=== PATIENT | female | born 1965 | race Caucasian/White ===

== ENCOUNTER 2017-01-21 07:36 | Inpatient (IN) | payer OTHER, MEDICAID ==
[~2017-01-21] VITALS: Ht 149.9 cm; Wt 47.3 kg
[~2017-01-21 07:36] MED LIST: APAP/HYDROCODON1 T13 PO; CIPRO500 MG PO; COL100 PO; DEPAKOTE500 MG PO; ECO81 PO; KLOR-CON M2020 MEQ PO; LAC PO; LASIX40 MG PO; MSC15 PO; ROB750 PO; TEGRETOL200 MG PO; ZOCOR40 MG PO
--- NOTE | 2017-01-21 07:53 | NUR ---
PT BIB CAREGIVER C/O WEAKNESS ON THE RIGHT LEG. PER CAREGIVER PT DIDNT FALL. PT WHEELED TO BED 9. PER JACQUELIN, PT CAN WALK WITH ASSISTANCE, BUT THIS AM, PT CRYING AND COMPLAINING. JACQUELIN HAS BEEN TAKING CARE OF SHRAVAN FOR 3-[address] ARAUZ.
--- NOTE | 2017-01-21 07:54 | NUR ---
DR VILLEGAS AT BEDSIDE
--- NOTE | 2017-01-21 08:00 | NUR ---
REDNESS NOTED ON THE RT LOWER LEG AREA
--- NOTE | 2017-01-21 08:05 | NUR ---
PXRAY AT BEDSIDE
--- NOTE | 2017-01-21 08:08 | NUR ---
MEDICATED PT ORDERED, SEE MAR. WILL MONITOR FOR ADVERSE REACTIONS
--- NOTE | 2017-01-21 08:15 | NUR ---
PT TAKEN TO XRAY VIA [facility].
[2017-01-21 08:22] LABS: CALCIUM 9.9 mg/dL (8.5-10.1); CARBON DIOXIDE 30.8 mmol/L (21-32); CHLORIDE SERUM 99 mmol/L (98-107); CREATININE SERUM 0.7 mg/dL (0.6-1.0); GFR1 > 60 mL/min; GLUCOSE SERUM 92 mg/dL (74-106); POTASSIUM SERUM 4.3 mmol/L (3.5-5.1); SODIUM SERUM 137 mmol/L (136-145)
[2017-01-21 08:29] LABS: BASOPHIL % 0.3 % (0-2); PLATELET COUNT 179 x10^3mcL (130-400); RED CELL DISTRIBUTION WIDTH 13.5 % (11.5-14.5)
--- NOTE | 2017-01-21 08:47 | NUR ---
PT STILL IN XRAY
--- NOTE | 2017-01-21 08:50 | NUR ---
PT BACK IN ROOM FROM [facility] VIA [facility]
--- NOTE | 2017-01-21 09:11 | NUR ---
PT LYING COMFORTABLY ON GURERIC, VSS. WILL CONTINUE TO MONITOR PT
[2017-01-21] MEDS ORDERED: CALCIUM PO (10:09)
[2017-01-21] MEDS ORDERED: SYNTHROID0.112 MG PO (10:10)
--- NOTE | 2017-01-21 10:10 | NUR ---
MULTIPLE IV ATTEMPTS STARTED HOWEVER WAS UNSUCCESSFUL. DR PISANOIED
--- NOTE | 2017-01-21 10:14 | NUR ---
REPORT GIVEN TO JUAN.
--- NOTE | 2017-01-21 10:59 | NUR ---
RECEIVED PT IN BED ALERT AND ORIENTED TO PERSON AND PLACE ONLY. HX CEREBRAL PALSY AND SZ. SZ PRECAUTIONS ON. ABLE TO ANSWER SOME SIMPLE QUESTIONS AND FOLLOW SOME SIMPLE COMMANDS. TELE #22, SB 59. CHIEF COMPLAINT OF R LEG PAIN. DENIES ANY PAIN AT THIS TIME. DENIES GI UPSET. VOIDS FREELY BUT PER PTS SISTER, PT IS INCONTINENT AT TIMES. GENERALIZED WEAKNESS. AMBULATES AT HOME WITH ASSISTANCE OR USES [facility]. 2+ EDEMA NOTED TO RLE. 1+ EDEMA TO LLE. SKIN INTACT. SISTER AT BEDSIDE. INSTRUCTED TO USE CALL LIGHT WHEN IN NEED OF ANY ASSISTANCE.
[2017-01-21 11:01] LABS: FREE T4 1.28 ng/dL (0.76-1.46); T4(THYROXINE) 10.9 ug/dL (4.7-13.3)
[2017-01-21 11:17] LABS: MAGNESIUM 1.9 mg/dL (1.8-2.4); PHOSPHOROUS 3.6 mg/dL (2.5-4.9)
[2017-01-21 11:18] LABS: CHOLESTEROL/HDL RATIO 2.8
[2017-01-21 11:21] LABS: T3 TOTAL 0.91 ng/mL
[2017-01-21 11:54] VITALS: BP 138/75
[2017-01-21 13:04] LABS: UA SPECIFIC GRAVITY 1.015 (1.005-1.035); microscopic required? YES; urine erythrocyte NEGATIVE (NEGATIVE)
--- NOTE | 2017-01-21 15:18 | NUR ---
PT COMPLAINING OF PAIN TO R LEG. NORCO PO GIVEN.
[2017-01-21 16:17] VITALS: BP 113/81
--- NOTE | 2017-01-21 18:19 | NUR ---
PT SITTING UP IN BED EATING DINNER. SISTER AT BEDSIDE. PT DENIES PAIN AT THIS TIME. CALL LIGHT WITHIN REACH.
--- NOTE | 2017-01-21 19:30 | NUR ---
PT. IS ALERT X3. FORETFUL ON DATE. LUNGS CLEAR BILATERAL. ON TELE #22. SINUS SINTIA. HR 55. NO SIGNS OF RESP. DISTRESS. LLE EDEMA +1, RLE EDEMA +2. PEDIAL PULSES PRESENT. BOWEL SOUNDS PRESENT X4. USES BED MORENO WITH ASSISTANCE. LAST BM 06/23/16. RLE RED/DRY, FLACKY SKIN. IV CLEAN AND INTACT. RAC NS INFUSING PER ORDER. NO COMPLAINS OF PAIN. FAMILY AT BEDSIDE. ALL ADLS MET. CALL [facility] WITHIN REACH. BED IN LOWEST PPOSTION. WILL CONTINUE TO [facility].
[2017-01-21 21:29] VITALS: BP 119/98
[2017-01-21 21:41] VITALS: BP 90/55
--- NOTE | 2017-01-22 01:40 | NUR ---
PT. IS RESTING IN BED. NO SIGNS OF RESP. DISTRESS. NO COMPLAINS OF PAIN. CALL LIGHT WITHIN REACH. WILL CONTINUE TO MONITOR.
[2017-01-22 04:13] VITALS: BP 108/56
--- NOTE | 2017-01-22 04:39 | NUR ---
PT. IS RESTING IN BED. NO SIGNS OF DISTRESS. BED IN LOWEST POSITION. CALL LIGHT IN REACH. WILL ENDORSE TO AM RN DURING SHIFT CHANGE.
[2017-01-22 06:20] LABS: CALCIUM 8.6 mg/dL (8.5-10.1); CARBON DIOXIDE 30.4 mmol/L (21-32); CHLORIDE SERUM 103 mmol/L (98-107); CREATININE SERUM 0.6 mg/dL (0.6-1.0); GFR1 > 60 mL/min; GLUCOSE SERUM 82 mg/dL (74-106); MAGNESIUM 1.7 mg/dL (1.8-2.4); PHOSPHOROUS 2.9 mg/dL (2.5-4.9); SODIUM SERUM 139 mmol/L (136-145)
[2017-01-22 06:28] LABS: BASOPHIL % 0.5 % (0-2); PLATELET COUNT 133 x10^3mcL (130-400); RED CELL DISTRIBUTION WIDTH 13.3 % (11.5-14.5)
--- NOTE | 2017-01-22 08:00 | NUR ---
RECEIVED PT IN BED ALERT AND ORIENTED TO PERSON AND PLACE. TELE #22, NSR 60. DENIES ANY PAIN OR DISCOMFORT AT THIS TIME. BREATHING EVEN AND UNLABORED ON RA. DENIES ANY GI UPSET. VOIDS FREELY BUT INCONTINENT AT TIMES. GENERALIZED WEAKNESS. SKIN CDI. 2+ EDEMA NOTED TO RLE. 1+ EDEMA NOTED TO LLE. RED/DRY PATCH OF SKIN NOTED TO RLE. SISTER AT BEDSIDE. INSTRUCTED TO USE CALL LIGHT WHEN IN NEED OF ASSISTANCE.
--- NOTE | 2017-01-22 08:30 | NUR ---
BEDSIDE ROUNDS DONE WITH DR OCHOA, PLAN TO WAIT FOR PT TO BE SEEN BY DR SOLIS BEFORE DISCHARGE TODAY. PT AND FAMILY AGREEABLE.
[2017-01-22 09:06] VITALS: BP 113/69
[2017-01-22 14:16] VITALS: BP 126/74
[2017-01-22 16:27] VITALS: BP 105/54
--- NOTE | 2017-01-22 18:19 | NUR ---
PT SITTING UP IN BED, SISTER AT [facility]. DENIES ANY PAIN OR DISCOMFORT. SEEN BY DR SOLIS. ASSISTED PT TO GET UP TO [facility] TODAY BUT PT REQUIRED 2 PERSON MAX ASSIST.
--- NOTE | 2017-01-22 20:00 | NUR ---
RECEIVED PT IN BED, WITH FAMILY MEMBERS AT THE BEDSIDE, VISITING. A/O X2, ABLE TO FOLLOW SOME COMMANDS. RESP. EVEN AND UNLABORED. ON ROOM AIR, NO DISTRESS NOTED. SR/SB ON THE MONITOR,. DENIES CHEST PAIN OR ANY DISCOMFORT AT THIS TIME. IVF, NS AT 100ML/HR, INTACT AND INFUSING VIA SITA, SITE CLEAR. ABLE TO MOVE ALL EXTS. WITH GEN. WEAKNESS, NEEDS ASSIST. WITH AMBULATION. VOIDING FREELY, INCONT. AT TIMES. ASSISTED WITH HS C[facility].CALL LIGHT WITHIN REACH. WILL CONTINUE TO MONITOR.
[2017-01-22 20:53] VITALS: BP 98/57
--- NOTE | 2017-01-22 23:25 | NUR ---
COMPLAINED OF ABD. PAIN, UNABLE TO STATE PAIN LEVEL, MEDICATED WITH NORCO PO ORDERED. WILL CONTINUE TO MONITOR.
--- NOTE | 2017-01-23 00:16 | NUR ---
CHECKED, EYES CLOSED, APPEARS COMFORTABLE. RESP. EVEN AND UNLABORED. NO DISTRESS NOTED. WILL CONTINUE TO MONITOR.
[2017-01-23 05:34] VITALS: BP 126/75
[2017-01-23 05:59] LABS: BASOPHIL % 0.4 % (0-2)
--- NOTE | 2017-01-23 06:19 | NUR ---
SLEPT WELL DURING THE NIGHT. NO COMPLAINTS NOTED AT THIS TIME. AFEBRILE AND VITAL SIGNS STABLE. SR ON THE MONITOR, DENIES CHEST PAIN OR ANY DISCOMFORT. RESP. EVEN AND UNLABORED. NO DISTRESS NOTED. DUE MEDS GIVEN ORDERED, SHANEL. WELL. IVF INTACT AND INFUSING WELL, SITE CLEAR. INCONT. OF URINE, CLEANED AND KEPT COMFORTABLE.NO SEIZURE ACTIVITY NOTED. WILL ENDORSE TO INCOMING NURSE.
[2017-01-23 06:25] LABS: PLATELET COUNT 115 x10^3mcL (130-400)
[2017-01-23 06:28] LABS: CALCIUM 8.8 mg/dL (8.5-10.1); CHLORIDE SERUM 102 mmol/L (98-107); CREATININE SERUM 0.6 mg/dL (0.6-1.0); GFR1 > 60 mL/min; GLUCOSE SERUM 82 mg/dL (74-106); POTASSIUM SERUM 4.2 mmol/L (3.5-5.1); SODIUM SERUM 135 mmol/L (136-145)
--- NOTE | 2017-01-23 07:40 | NUR ---
RECEIVED PT IN BED ALERT AND ORIENTED TO PERSON AND PLACE. ABLE TO FOLLOW COMMANDS AND MAKE NEEDS KNOWN. SISTER AT BEDSIDE. DENIES ANY PAIN OR DISCOMFORT. 2+ EDEMA NOTED TO RLE, 1+ EDEMA TO LLE. RED/DRY PATCH OF SKIN NOTED TO RLE. GENERALIZED WEAKNESS. VOIDS FREELY. INSTRUCTED TO USE CALL LIGHT WHEN IN NEED OF ANY ASSISTANCE.
[2017-01-23 08:46] VITALS: BP 141/78
[2017-01-23] MEDS ORDERED: MAC100 PO (09:14)
[2017-01-23] MEDS ORDERED: EUCERIN ORIGIN250 ML TOP (09:15)
[2017-01-23] MEDS ORDERED: APAP/HYDROCODON1 T13 PO (09:27)
[2017-01-23] MEDS ORDERED: ECO81 PO (09:31)
[2017-01-23 13:40] VITALS: BP 141/84
[2017-01-23] MEDS ORDERED: LAC PO (14:36)
== END 2017-01-23 16:01 | disposition home health service (06) | DRG 564 ==
LOC: ED 07:36 → DU 10:00
PROVIDERS: Emergency Medicine; ADMIT Family Medicine
DX: M24.451 Recurrent dislocation, right hip (principal); N17.0 Acute kidney failure with tubular necrosis; N39.0 Urinary tract infection, site not specified; Q74.2 Other congenital malformations of lower limb(s), including pelvic girdle; E83.42 Hypomagnesemia; K56.41 Fecal impaction; R60.9 Edema, unspecified; E78.5 Hyperlipidemia, unspecified; D53.9 Nutritional anemia, unspecified; M81.0 Age-related osteoporosis without current pathological fracture; G80.9 Cerebral palsy, unspecified; Q80.9 Congenital ichthyosis, unspecified; G40.909 Epilepsy, unspecified, not intractable, without status epilepticus; E03.9 Hypothyroidism, unspecified; Z68.21 Body mass index [BMI] 21.0-21.9, adult
CPT/HCPCS: 83880; 84439; 97530-GP; J0696; J3010; J3475; J7030

== ENCOUNTER 2017-05-04 07:06 | Inpatient (IN) | payer OTHER, MEDICAID ==
[~2017-05-04] VITALS: Ht 147.3 cm; Wt 47.6 kg
[~2017-05-04 07:06] MED LIST changes: +CALCIUM PO; +EUCERIN ORIGIN250 ML TOP; +MAC100 PO; +SYNTHROID0.112 MG PO
[2017-05-04 07:16] VITALS: Ht 147.3 cm; Wt 47.6 kg
[2017-05-04 09:18] LABS: PLATELET COUNT 168 x10^3mcL (130-400)
[2017-05-04 09:19] LABS: RED CELL DISTRIBUTION WIDTH 15.3 % (11.5-14.5)
[2017-05-04 09:37] LABS: CALCIUM 10.1 mg/dL (8.5-10.1); CARBON DIOXIDE 33.1 mmol/L (21-32); CREATININE SERUM 1.1 mg/dL (0.6-1.0); POTASSIUM SERUM 4.1 mmol/L (3.5-5.1)
[2017-05-04 09:42] LABS: ALBUMIN 3.4 g/dL (3.4-5.0); BILIRUBIN TOTAL 0.7 mg/dL (0.20-1.00); TOTAL PROTEIN, SERUM 6.8 g/dL (6.4-8.2)
[2017-05-04 09:50] LABS: T3 TOTAL 0.84 ng/mL
[2017-05-04 09:52] LABS: FREE T4 1.2 ng/dL (0.76-1.46); T4(THYROXINE) 8.7 ug/dL (4.7-13.3)
[2017-05-04 10:17] LABS: UA SPECIFIC GRAVITY 1.015 (1.005-1.035); microscopic required? YES; urine erythrocyte 1+ (NEGATIVE)
[2017-05-04 10:28] LABS: BAND NEUTROPHIL 49 % (0-10); BASOPHIL 0 % (0-2); METAMYELOCTE 2 % (0-2); MONOCYTE 1 % (0-7); SEGMENTED NEUTROPHILS 45 % (37-75)
[2017-05-04 10:29] LABS: PLATELET MORPHOLOGY PLATELETS NORMAL
[2017-05-04] MEDS ORDERED: SIMVASTATIN10 M1 PO (11:17)
[2017-05-04] MEDS ORDERED: LASIX20 MG PO (11:21)
[2017-05-04] MEDS ORDERED: CALCIUM 600600 M3 PO (11:22)
[2017-05-04] MEDS ORDERED: TEGRETOL200 MG PO ×2 (11:22→11:23)
[2017-05-04 13:14] VITALS: BP 93/54
[2017-05-04 14:05] VITALS: BP 112/67
[2017-05-04 14:25] VITALS: BP 104/65
[2017-05-04 15:44] LABS: MAGNESIUM 2.1 mg/dL (1.8-2.4); PHOSPHOROUS 2.9 mg/dL (2.5-4.9)
[2017-05-04 16:50] VITALS: BP 106/63
[2017-05-04 17:36] LABS: AMPHETAMINE QUAL UR NONE DETECTED (NEG <=1000)
[2017-05-04 21:35] LABS: CALCIUM 9.1 mg/dL (8.5-10.1); CARBON DIOXIDE 29.4 mmol/L (21-32); CREATININE SERUM 1.2 mg/dL (0.6-1.0); POTASSIUM SERUM 3.7 mmol/L (3.5-5.1)
[2017-05-04 21:45] VITALS: BP 106/63
[2017-05-04 21:47] VITALS: BP 119/72
[2017-05-05 04:30] VITALS: BP 101/73
[2017-05-05 06:50] LABS: CALCIUM 8.5 mg/dL (8.5-10.1); CARBON DIOXIDE 27.3 mmol/L (21-32); CREATININE SERUM 1.6 mg/dL (0.6-1.0); POTASSIUM SERUM 3.5 mmol/L (3.5-5.1)
[2017-05-05 07:06] LABS: PLATELET COUNT 117 x10^3mcL (130-400); RED CELL DISTRIBUTION WIDTH 15.6 % (11.5-14.5)
[2017-05-05 10:00] VITALS: BP 104/67
[2017-05-05 11:54] LABS: BAND NEUTROPHIL 13 % (0-10); BASOPHIL 0 % (0-2); MONOCYTE 1 % (0-7); SEGMENTED NEUTROPHILS 84 % (37-75)
[2017-05-05 11:55] LABS: PLATELET MORPHOLOGY PLATELETS DECREASED; rbc morphology (normal/abnorm) ABNORMAL (NORMAL)
[2017-05-05 13:36] VITALS: BP 106/64
[2017-05-05 16:44] VITALS: BP 91/48
[2017-05-05 21:00] VITALS: BP 116/65
[2017-05-06 05:25] VITALS: BP 93/47
[2017-05-06 06:40] LABS: CALCIUM 8.6 mg/dL (8.5-10.1); CARBON DIOXIDE 27.2 mmol/L (21-32); CREATININE SERUM 1.6 mg/dL (0.6-1.0); MAGNESIUM 1.8 mg/dL (1.8-2.4); PHOSPHOROUS 3.8 mg/dL (2.5-4.9)
[2017-05-06 06:44] LABS: POTASSIUM SERUM 2.8 mmol/L (3.5-5.1)
[2017-05-06 06:55] LABS: RED CELL DISTRIBUTION WIDTH 15.9 % (11.5-14.5)
[2017-05-06 06:56] LABS: BASOPHIL % 0 % (0-2); PLATELET COUNT 89 x10^3mcL (130-400)
[2017-05-06 09:25] VITALS: BP 107/63
[2017-05-06 11:01] VITALS: BP 107/63
[2017-05-06] MEDS ORDERED: LEVAQUIN750 MG PO (12:10)
[2017-05-06] MEDS ORDERED: LAC PO (12:13)
[2017-05-06 13:20] VITALS: BP 109/61
[2017-05-06 13:56] LABS: CALCIUM 8.3 mg/dL (8.5-10.1); CARBON DIOXIDE 29.2 mmol/L (21-32); CREATININE SERUM 1.6 mg/dL (0.6-1.0)
== END 2017-05-06 16:36 | disposition home or self-care (01) | DRG 177 ==
LOC: ED 07:06 → DU 10:11
PROVIDERS: Emergency Medicine; Family Medicine
DX: J69.0 Pneumonitis due to inhalation of food and vomit (principal); G93.41 Metabolic encephalopathy; N17.0 Acute kidney failure with tubular necrosis; N39.0 Urinary tract infection, site not specified; E87.0 Hyperosmolality and hypernatremia; E44.1 Mild protein-calorie malnutrition; G91.3 Post-traumatic hydrocephalus, unspecified; R06.03 Acute respiratory distress; G80.9 Cerebral palsy, unspecified; T14.90XS Injury, unspecified, sequela; K71.8 Toxic liver disease with other disorders of liver; T42.1X5A Adverse effect of iminostilbenes, initial encounter; E78.5 Hyperlipidemia, unspecified; E03.9 Hypothyroidism, unspecified; D50.9 Iron deficiency anemia, unspecified; G40.909 Epilepsy, unspecified, not intractable, without status epilepticus; Q80.9 Congenital ichthyosis, unspecified; M19.90 Unspecified osteoarthritis, unspecified site; Z16.24 Resistance to multiple antibiotics; Z91.14 Patient's other noncompliance with medication regimen; Z99.3 Dependence on wheelchair; Z68.21 Body mass index [BMI] 21.0-21.9, adult; X58.XXXS Exposure to other specified factors, sequela; Y92.009 Unspecified place in unspecified non-institutional (private) residence as the place of occurrence of the external cause
CPT/HCPCS: 83880; 84439; 94150; J0696; J2543; J3480; J7030; J7040; J7620; Q0092

== ENCOUNTER 2017-07-28 07:08 | Emergency (ER) | payer OTHER, MEDICAID ==
[~2017-07-28 07:08] MED LIST changes: +AMOXICILLIN/CLA1 TA6 PO; +CALCIUM 600600 M3 PO; +LASIX20 MG PO; +LEVAQUIN750 MG PO; +SIMVASTATIN10 M1 PO
[2017-07-28 07:20] VITALS: BP 39/72
== END 2017-07-28 07:36 | disposition expired ==
LOC: ED 07:08
DX: I46.9 Cardiac arrest, cause unspecified (principal); E03.9 Hypothyroidism, unspecified; E78.00 Pure hypercholesterolemia, unspecified; G80.9 Cerebral palsy, unspecified; Z88.8 Allergy status to other drugs, medicaments and biological substances
CPT/HCPCS: J1265; J7030